=== PATIENT | female | born 1975 | race Caucasian/White ===

== ENCOUNTER → 2017-08-26 | Outpatient (CLI) | payer OTHER ==
--- NOTE | 2017-08-27 07:38 | MM ---
Reason for exam: screening (asymptomatic). Baseline mammogram. History: Patient had first child at age 30. Took hormonal contraceptives for 5 years. Physical Findings: Nurse did not find any significant physical abnormalities on exam. MG Screening Mammo w CAD Bilateral CC and MLO view(s) were taken. The breast tissue is heterogeneously dense. This may lower the sensitivity of mammography. No suspicious abnormality in the left breast. There are two focal asymmetries of the upper outer quadrant of the right breast at middle depth measuring 8mm and 3mm. Additional views will be performed. These results were verbally communicated with the patient and result sheet given to the patient on 08/26/17. ASSESSMENT: Incomplete: need additional imaging evaluation, BI-RAD 0 RECOMMENDATION: Special view mammogram of the right breast. If lesion persists on supplemental views, image directed ultrasound is recommended. [facility] will attempt to contact patient to return for supplemental views and ultrasound if indicated.
--- NOTE | 2017-08-27 07:40 | MM ---
Reason for exam: additional evaluation requested from abnormal screening. History: Patient had first child at age 30. Took hormonal contraceptives for 5 years. Physical Findings: Breast exam preformed at baseline screening. MG Work Up Mamm w CAD RT Spot compression CC and spot compression MLO view(s) were taken of the right breast. There are scattered fibroglandular densities. No distinct lesion persists on additional views. These results were verbally communicated with the patient and result sheet given to the patient on 08/26/17. ASSESSMENT: Benign, BI-RAD 2 RECOMMENDATION: Return to routine screening mammogram schedule for both breasts.
== END | disposition home or self-care (01) ==
LOC: RADMAMWWP 13:32
PROVIDERS: ATTEND Family Medicine
DX: Z12.31 Encounter for screening mammogram for malignant neoplasm of breast (principal); R92.8 Other abnormal and inconclusive findings on diagnostic imaging of breast
CPT/HCPCS: 77065; 77067

== ENCOUNTER → 2018-12-31 | Outpatient (CLI) | payer OTHER ==
--- NOTE | 2018-12-31 10:35 | MR ---
EXAMINATION TYPE: MR knee RT wo con DATE OF EXAM: 12/31/2018 COMPARISON: X-ray dated 08/11/2018 HISTORY: Pain in right knee TECHNIQUE: Multiplanar, multisequence imaging of the right knee is performed without IV contrast. FINDINGS: There is significant loss of joint space with most marked findings involving the knee joint. Grade II I chondromalacia of the lateral femoral cartilage is seen and there is grade II chondromalacia of the medial femoral cartilage. Grade II chondromalacia of the lateral patellar facet noted. Patellar retinaculum are intact. The patellar and quadriceps tendons are intact. Anterior cruciate and posterior cruciate ligaments are intact. Medial and lateral collateral ligament s have a normal appearance. There is grade 3 abnormal signal involving the posterior horn of the lateral meniscus compatible with meniscal tear. Intrasubstance signal involving the anterior horn is more typical of myxoid degenerat ion although a tear is not excluded. Medial meniscus demonstrates no diagnostic evidence of tear. No sizable popliteal fossa cyst. There is a small amount of edema seen in the suprapatellar bursa which can be seen with fat pad impin gement syndrome. IMPRESSION: 1. Osteoarthritis with significant chondromalacia particularly involving the lateral femoral cartilag e correlate clinically. 2. Posterior horn lateral meniscal tear. Significant mucoid degeneration of the anterior horn also moralez spected. 3. Correlate for fat pad impingement syndrome.
== END | disposition home or self-care (01) ==
LOC: RADMRIMAIN 08:57
PROVIDERS: ATTEND Orthopaedic Surgery
DX: M17.11 Unilateral primary osteoarthritis, right knee (principal); S83.281A Other tear of lateral meniscus, current injury, right knee, initial encounter; M94.261 Chondromalacia, right knee

== ENCOUNTER → 2019-02-18 | Outpatient (CLI) | payer OTHER ==
[2019-02-18 15:11] LABS: Basophils # (A) 0.1 k/uL (0-0.2); Basophils % (A) 1 %; Eosinophils # (A) 0.4 k/uL (0-0.7); Eosinophils % (A) 4 %; HCT 38.7 % (34.0-46.0); HGB 12.1 gm/dL (11.4-16.0); Lymphocytes # (A) 2.2 k/uL (1.0-4.8); Lymphocytes % (A) 23 %; MCH 30.1 pg (25.0-35.0); MCHC 31.2 g/dL (31.0-37.0); MCV 96.5 fL (80.0-100.0); Mean Platelet Volume 7.1; Monocytes # (A) 0.6 k/uL (0-1.0); Monocytes % (A) 6 %; Neutrophils # (A) 6.2 k/uL (1.3-7.7); Neutrophils % (A) 65 %; Platelet Count 354 k/uL (150-450); RBC 4.01 m/uL (3.80-5.40); RDW 15.2 % (11.5-15.5); WBC 9.5 k/uL (3.8-10.6)
== END | disposition home or self-care (01) ==
LOC: LABPAT 14:29 → LABWHC1 14:29
PROVIDERS: ATTEND Orthopaedic Surgery
DX: Z01.812 Encounter for preprocedural laboratory examination (principal); M23.91 Unspecified internal derangement of right knee
CPT/HCPCS: 36415; 80051; 85025

== ENCOUNTER 2019-02-25 07:18 | Day surgery (SDC) | payer OTHER ==
[2019-02-24 09:03] VITALS: BMI 35.5
--- NOTE | 2019-02-24 15:36 | HP ---
HISTORY AND PHYSICAL DATE OF SURGERY: 02/25/2019 Carol Shea is a 43-year-old patient seen with progressive right knee pain. Treatment options were discussed. She elected to proceed with right knee arthroscopy. Consent was obtained. PAST MEDICAL HISTORY: Noncontributory. PAST SURGICAL HISTORY: Noncontributory. DAILY MEDICATIONS: None. ALLERGIES: None reported. SOCIAL HISTORY: She denies current tobacco use. PHYSICAL EVALUATION OF THE RIGHT KNEE: Range of motion is 0 to 130 degrees. Tenderness along the medial and lateral joint lines. Positive medial Jyoti's. Positive lateral Jyoti's. Ligaments stable. Hip rotation is limited without pain. Distal neurovascular exam is intact. RADIOGRAPHS OF THE RIGHT KNEE: Revealed mild osteoarthritis. MRI right knee revealed lateral and meniscal tear. IMPRESSION: Internal derangement, right knee lateral meniscal tear. PLAN: Right knee arthroscopy with partial meniscectomy and debridement. MMODL / IJN: [id number] /
[~2019-02-25 07:18] MED LIST: DEXAMETHASONE SOD PHOSPHATE 10 MG/ML 1 ML VIAL IV ONE; LACTATED RINGERS 1,000 ML IV SCH; LIDOCAINE 1% 20 ML VIAL (10MG/ML) FOR IV START INTRADERMA PRN; MIDAZOLAM 2 MG/2 ML VIAL IV PRN; ONDANSETRON 4 MG/2 ML VIAL IVP ONE; SCOPOLAMINE 1.5MG/72HR PATCH TRANSDERM ONE
[2019-02-25] MEDS ORDERED: fentaNYL (PF) 50 MCG/ML 2 ML AMP ONE (08:38)
[2019-02-25] MEDS ORDERED: KETOROLAC 30 MG/ML 1 ML VIAL ONE (08:38)
[2019-02-25] MEDS ORDERED: GLYCOPYRROLATE 0.2 MG/ML 2 ML VIAL ONE (08:38)
[2019-02-25] MEDS ORDERED: PROPOFOL 10 MG/ML 20 ML VIAL IV ONE (08:38)
[2019-02-25] MEDS ORDERED: MIDAZOLAM 2 MG/2 ML VIAL ONE (08:38)
[2019-02-25] MEDS ORDERED: LIDOCAINE 1% INJ 10MG/ML (20 ML MDV) ONE (08:38)
[2019-02-25] MEDS ORDERED: BUPIVACAINE (PF) 0.5% 30 ML VIAL INTRAARTIC ONE (08:59)
[2019-02-25 09:27] VITALS: RESP 16; TEMP 97.4
--- NOTE | 2019-02-25 09:45 | P.OP ---
Date of Procedure: 02/25/19 Preoperative Diagnosis: Internal derangement right knee Postoperative Diagnosis: 1. Tear lateral meniscus right knee 2. Grade 2/3 chondromalacia patella right knee 3. Grade 3 chondromalacia lateral femoral condyle right knee 4. Reactive synovitis medial, lateral and suprapatellar compartments right knee Procedure(s) Performed: 1. Arthroscopic partial lateral meniscectomy right knee 2. Arthroscopic chondroplasty patella right knee 3. Arthroscopic chondroplasty lateral femoral condyle right knee 4. Arthroscopic partial synovectomy medial, lateral and suprapatellar compartments right knee Anesthesia: LAISHAA, local Surgeon: Yoni Dumont Estimated Blood Loss (ml): 8 Pathology: none sent Condition: stable Disposition: PACU Indications for Procedure: 43-year-old patient seen with progressive right knee pain. After having treatment options discussed, she elected to proceed with arthroscopy. Operative Findings: See description of procedure Description of Procedure: Patient was taken to the operative suite. Patient underwent a general anesthetic by the department of anesthesia. Patient was given preoperative antibiotics. The right lower extremity was placed in a well-padded arthroscopic leg garcia. The right leg was prepped and draped in the normal sterile orthopedic fashion. A lateral parapatellar and suprapatellar incision was made. Trochars were inserted. Arthroscopy was initiated. Suprapatellar pouch revealed diffuse thick reactive synovitis. The patellofemoral joint appeared to articulate congruently. There was grade 2/3 chondromalacia of the patella with some osteochondral tears present. The scope was guided into the medial gutter. No loose bodies or plica were identified. The scope was then guided into the medial compartment. A medial parapatellar incision was made. Trocar inserted followed by probe. The medial meniscus was probed and found to be stable. There was an area of grade 1/2 chondromalacia medial femoral condyle weightbearing surface with no osteochondral tears present. There was thick reactive synovitis anteriorly. I performed a partial synovectomy decompressing the thick reactive synovitis. The shaver was removed. There appeared be good decompression of the synovitis. Scope and probe were then guided into the intercondylar notch. Cruciates were identified, probed and found to be stable. The scope and probe were then guided into lateral compartment. There was a complex tear involving the posterior horn and midbody lateral meniscus. There were grade 3 chondral malacia changes lateral femoral condyle weightbearing surface with osteochondral flap tears present. There was thick reactive synovitis anteriorly. I performed a partial lateral meniscectomy getting down to stable meniscal tissue. I performed a chondroplasty of the lateral femoral condyle getting down to stable osteochondral tissue. I performed a partial synovectomy decompressing the thick reactive synovitis. The shaver was removed. There was good decompression of synovitis. The residual meniscus was stable. The residual osteochondral surface medial femoral condyle was stable. The scope was in guided back into the suprapatellar compartment. I introduced a motorized shaver into the suprapatellar compartment. I debrided some piecemeal fragments of meniscus I encountered. I performed a chondroplasty of the patella gained down to stable tissue. I performed a partial synovectomy decompressing the thick reactive synovitis. The shaver was removed. There was good decompression of synovitis. The residual osteochondral surface of patella appeared stable. I took one more look on the entire knee, no residual debris. Instruments were now removed from the joint. The joint was infiltrated with .25% Marcaine. Steri- Strips were applied to the portal sites. Sterile dressings were applied. The patient was placed into a JUAN CARLOS hose. No tourniquet was utilized. The patient was awakened, transferred to a bed and taken to recovery stable satisfactory con dition.
[2019-02-25] MEDS: HYDROmorphone 0.5 MG/0.5 ML SYRINGE IVP PRN ×2 (09:46→09:54)
[2019-02-25 10:35] VITALS: BP 120/64; PULSE 50
== END 2019-02-25 11:05 | disposition home or self-care (01) ==
LOC: OR 07:18
PROVIDERS: ATTEND Orthopaedic Surgery
DX: M23.351 Other meniscus derangements, posterior horn of lateral meniscus, right knee (principal); M23.361 Other meniscus derangements, other lateral meniscus, right knee; M94.261 Chondromalacia, right knee; M65.861 Other synovitis and tenosynovitis, right lower leg
CPT/HCPCS: 29881; 81025; J2250; J1100; J0690; J2405; J2001; J3010; J1885; J2704; J1170

== ENCOUNTER 2019-09-16 17:47 | Emergency (ER) | payer OTHER ==
[2019-09-16 18:09] VITALS: RESP 18
[2019-09-16] MEDS ORDERED: SODIUM CHLORIDE 0.9% 1,000 ML IV STA (18:19)
[2019-09-16] MEDS ORDERED: IOPAMIDOL CONTRAST (ORAL USE) VIAL PO PRN (18:19)
--- NOTE | 2019-09-16 18:26 | ED ---
General Adult HPI - General Chief complaint: Abdominal Pain Stated complaint: ABD PAIN Time Seen by Provider: 09/16/19 18:11 Source: patient, RN notes reviewed, old records reviewed Mode of arrival: ambulatory Limitations: no limitations - History of Present Illness Initial comments: 44 year old female patient presents with history significant for reactive surgery Ford-en-Y procedure in 2013, history of pulmonary embolism reportedly from oral contraceptives presents to ED for chief complaint of 2 days of abdominal pain cough, fever. Patient reports that for the last 48 hours she has been experiencing a dry cough, one episode of emesis 2 days ago, nausea, mild diarrhea, right lower quadrant, periumbilical abdominal pain. Patient does report that she is also status post appendectomy and cholecystectomy. Patient reports that the abdominal pain is her chief complaint of brought her in today. Does report that she had a fever 2 days ago, denies one today, denies any chance of being at this time. Systemic: Pt denies fatigue, fever/chills, rash. Pt denies weakness, night sweats, weight loss. Neuro: Pt denies headache, visual disturbances, syncope or pre-syncope. HEENT: Pt denies ocular discharge or irritation, otalgia, rhinorrhea, pharyngitis or notable lymphadenopathy. Cardiopulmonary: Pt denies chest pain, SOB, heart palpitations, dyspnea on exertion. : Pt denies dysuria, burning w/ urination, frequency/urgency. Denies new onset urinary or bowel incontinence. MSK: Pt denies myalgia, loss of strength or function in extremities. Neuro: Pt denies new onset weakness, paresthesias. - Related Data Home Medications Medication Instructions Recorded Confirmed Albuterol Inhaler [Ventolin Hfa 1 - 2 puff INHALATION RT-Q6H PRN 02/24/19 02/25/19 Inhaler] Cholecalciferol [Vitamin D3 (25 1,000 unit PO DAILY 02/24/19 02/25/19 Mcg = 1000 Iu)] Thiamine [Vitamin B-1] 100 mg PO DAILY 02/24/19 02/25/19 Turmeric Root Extract [Turmeric] 500 mg PO DAILY 02/24/19 02/25/19 Cannabidiol (Cbd) Extract 1 drop PO DAILY PRN 02/25/19 02/25/19 [Epidiolex] Previous Rx's Medication Instructions Recorded Hydrocodone/Acetaminophen [Strong 1 each PO Q6HR PRN #15 tab 02/25/19 5-325] Cephalexin [Keflex] 500 mg PO Q12HR 7 Days #14 cap 09/16/19 Allergies Allergy/AdvReac Type Severity Reaction Status Date / Time DERMABOND Allergy Rash/Hives Uncoded 09/16/19 18:08 Review of Systems ROS Statement: Those systems with pertinent positive or pertinent negative responses have been documented in the HPI. ROS Other: All systems not noted in ROS Statement are negative. 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, allergy induced asthma History of Any Multi-Drug Resistant Organisms: None Reported Past Surgical History: Adenoidectomy, Appendectomy, Bariatric Surgery, Cholecystectomy, Orthopedic Surgery, Tonsillectomy Additional Past Surgical History / Comment(s): Ford en Y Gastric Bypass, laparoscopy-exploratory, Left Knee arthroscopy Past Anesthesia/Blood Transfusion Reactions: No Reported Reaction Past Psychological History: Depression Smoking Status: Former smoker Past Alcohol Use History: Daily, Occasional Past Drug Use History: None Reported - Past Family History Mother Family Medical History: No Reported History Father Family Medical History: No Reported History General Exam - General Exam Comments Initial Comments: Constitutional: NAD, AOX3, Pt has pleasant affect. HEENT: NC/AT, trachea midline, neck supple, no lymphadenopathy. Posterior pharynx non erythematous, without exudates. External ears appear normal, without discharge. Mucous membranes moist. Eyes PERRLA, EOM intact. There is no scleral icterus. No pallor noted. Cardiopulmonary: RRR, no murmurs, rubs or gallops, no JVD noted. Lungs CTAB in anterior and posterior hartman. No peripheral edema. Abdominal exam: Abdomen soft and non-distended. Mild tenderness to palpation periumbilical, right lower quadrant region.. Bowel sounds active in LLQ. No hepatosplenomegaly. No ecchymosis Neuro: CN II-XII grossly intact. No nuchal rigidity. No raccon eyes, no ventura sign, no hemotympanum. No cervical spinal tenderness. MSK: No posterior calf tenderness bilaterally, homans sign negative bilaterally. Posterior tibialis and radial pulse +2 bilaterally. Sensation intact in upper and lower extremities. Full active ROM in upper and lower extremities, 5/5 stregnth. Limitations: no limitations Course Vital Signs 09/16/19 18:02 Temperature 99 F Pulse Rate 70 Respiratory 18 Rate Blood Pressure 139/83 O2 Sat by Pulse 97 Oximetry Medical Decision Making - Medical Decision Making 44 year old female patient presents with history significant for reactive surgery Ford-en-Y procedure in 2013, history of pulmonary embolism reportedly from oral contraceptives presents to ED for chief complaint of 2 days of abdominal pain cough, fever. Patient reports that for the last 48 hours she has been experiencing a dry cough, one episode of emesis 2 days ago, nausea, mild diarrhea, right lower quadrant, periumbilical abdominal pain. Patient does report that she is also status post appendectomy and cholecystectomy. Patient reports that the abdominal pain is her chief complaint of brought her in today. Does report that she had a fever 2 days ago, denies one today, denies any chance of being at this time. Patient vital signs stable, afebrile. Physical exam displayed mild amount of periumbilical, right lower quadrant tenderness. Laboratory investigations are obtained and are overall non- impressive. Influenza negative. UA displayed borderline urinary tract infection. This will be treated with Keflex. Chest x-ray displayed no acute process. CT abdomen and pelvis displayed no acute process, sinusitis and rhinitis. Patient will be discharged for follow-up with primary care provider will take antibiotics as directed and will return to ER if condition worsens. Case discussed with Dr. Hess. - Lab Data Result diagrams: 09/16/19 18:30 09/16/19 18:30 Lab Results 09/16/19 09/16/19 09/16/19 Range/Units 18:30 18:30 18:30 WBC 6.8 (3.8-10.6) k/uL RBC 4.44 (3.80-5.40) m/uL Hgb 12.9 (11.4-16.0) gm/dL Hct 40.6 (34.0-46.0) % MCV 91.5 (80.0-100.0) fL MCH 29.0 (25.0-35.0) pg MCHC 31.7 (31.0-37.0) g/dL RDW 13.9 (11.5-15.5) % Plt Count 444 (150-450) k/uL Neutrophils % 60 % Lymphocytes % 22 % Monocytes % 8 % Eosinophils % 5 % Basophils % 1 % Neutrophils # 4.1 (1.3-7.7) k/uL Lymphocytes # 1.5 (1.0-4.8) k/uL Monocytes # 0.6 (0-1.0) k/uL Eosinophils # 0.4 (0-0.7) k/uL Basophils # 0.1 (0-0.2) k/uL Sodium 137 (137-145) mmol/L Potassium 4.7 (3.5-5.1) mmol/L Chloride 107 (98-107) mmol/L Carbon Dioxide 21 L (22-30) mmol/L Anion Gap 9 mmol/L BUN 14 (7-17) mg/dL Creatinine 0.65 (0.52-1.04) mg/dL Est GFR (CKD-EPI)AfAm >90 (>60 ml/min/1.73 sqM) Est GFR (CKD-EPI)NonAf >90 (>60 ml/min/1.73 sqM) Glucose 98 (74-99) mg/dL Plasma Lactic Acid Riley 0.8 (0.7-2.0) mmol/L Calcium 9.3 (8.4-10.2) mg/dL Total Bilirubin 0.5 (0.2-1.3) mg/dL AST 25 (14-36) U/L ALT 13 (4-34) U/L Alkaline Phosphatase 70 (38-126) U/L Total Protein 7.2 (6.3-8.2) g/dL Albumin 4.0 (3.5-5.0) g/dL Lipase 153 (23-300) U/L Urine Color Urine Appearance (Clear) Urine pH (5.0-8.0) Ur Specific Weston (1.001-1.035) Urine Protein (Negative) Urine Glucose (UA) (Negative) Urine Ketones (Negative) Urine Blood (Negative) Urine Nitrite (Negative) Urine Bilirubin (Negative) Urine Urobilinogen (<2.0) mg/dL Ur Leukocyte Esterase (Negative) Urine RBC (0-5) /hpf Urine WBC (0-5) /hpf Ur Squamous Epith Cells (0-4) /hpf Urine Bacteria (None) /hpf Urine Mucus (None) /hpf Urine Yeast (Budding) (None) /hpf Urine HCG, Qual (Not Detectd) Influenza Type A RNA (Not Detectd) Influenza Type B (PCR) (Not Detectd) 09/16/19 09/16/19 09/16/19 Range/Units 18:30 19:34 19:34 WBC (3.8-10.6) k/uL RBC (3.80-5.40) m/uL Hgb (11.4-16.0) gm/dL Hct (34.0-46.0) % MCV (80.0-100.0) fL MCH (25.0-35.0) pg MCHC (31.0-37.0) g/dL RDW (11.5-15.5) % Plt Count (150-450) k/uL Neutrophils % % Lymphocytes % % Monocytes % % Eosinophils % % Basophils % % Neutrophils # (1.3-7.7) k/uL Lymphocytes # (1.0-4.8) k/uL Monocytes # (0-1.0) k/uL Eosinophils # (0-0.7) k/uL Basophils # (0-0.2) k/uL Sodium (137-145) mmol/L Potassium (3.5-5.1) mmol/L Chloride (98-107) mmol/L Carbon Dioxide (22-30) mmol/L Anion Gap mmol/L BUN (7-17) mg/dL Creatinine (0.52-1.04) mg/dL Est GFR (CKD-EPI)AfAm (>60 ml/min/1.73 sqM) Est GFR (CKD-EPI)NonAf (>60 ml/min/1.73 sqM) Glucose (74-99) mg/dL Plasma Lactic Acid Riley (0.7-2.0) mmol/L Calcium (8.4-10.2) mg/dL Total Bilirubin (0.2-1.3) mg/dL AST (14-36) U/L ALT (4-34) U/L Alkaline Phosphatase (38-126) U/L Total Protein (6.3-8.2) g/dL Albumin (3.5-5.0) g/dL Lipase (23-300) U/L Urine Color Light Yellow Urine Appearance Cloudy H (Clear) Urine pH 6.5 (5.0-8.0) Ur Specific Weston >1.050 H (1.001-1.035) Urine Protein Trace H (Negative) Urine Glucose (UA) Negative (Negative) Urine Ketones Negative (Negative) Urine Blood Trace H (Negative) Urine Nitrite Negative (Negative) Urine Bilirubin Negative (Negative) Urine Urobilinogen <2.0 (<2.0) mg/dL Ur Leukocyte Esterase Large H (Negative) Urine RBC 16 H (0-5) /hpf Urine WBC 34 H (0-5) /hpf Ur Squamous Epith Cells 24 H (0-4) /hpf Urine Bacteria Occasional H (None) /hpf Urine Mucus Rare H (None) /hpf Urine Yeast (Budding) Occasional H (None) /hpf Urine HCG, Qual Not Detected (Not Detectd) Influenza Type A RNA Not Detected (Not Detectd) Influenza Type B (PCR) Not Detected (Not Detectd) Disposition Clinical Impression: UTI (urinary tract infection), Abdominal pain Disposition: HOME SELF-CARE Condition: Stable Instructions (If sedation given, give patient instructions): Abdominal Pain (ED), Urinary Tract Infection in Women (ED) Additional Instructions: Follow-up with primary care provider tomorrow. Take antibiotics as directed. Return to ER if condition worsens in any way. Prescriptions: Cephalexin [Keflex] 500 mg PO Q12HR 7 Days #14 cap Is patient prescribed a controlled substance at d/c from ED?: No Referrals: Jered Corcoran DO [Primary Care Provider] - 1-2 days
[2019-09-16 18:42] LABS: Basophils # (A) 0.1 k/uL (0-0.2); Basophils % (A) 1 %; Eosinophils # (A) 0.4 k/uL (0-0.7); Eosinophils % (A) 5 %; HCT 40.6 % (34.0-46.0); HGB 12.9 gm/dL (11.4-16.0); Lymphocytes # (A) 1.5 k/uL (1.0-4.8); Lymphocytes % (A) 22 %; MCHC 31.7 g/dL (31.0-37.0); MCV 91.5 fL (80.0-100.0); Mean Platelet Volume 7.3; Monocytes # (A) 0.6 k/uL (0-1.0); Monocytes % (A) 8 %; Neutrophils # (A) 4.1 k/uL (1.3-7.7); Neutrophils % (A) 60 %; Platelet Count 444 k/uL (150-450); RBC 4.44 m/uL (3.80-5.40); RDW 13.9 % (11.5-15.5); WBC 6.8 k/uL (3.8-10.6)
[2019-09-16 18:57] LABS: ALT 13 U/L (4-34); AST 25 U/L (14-36); African American GFR (CKD) >90 (>60 ml/min/1.73 sqM); Alkaline Phosphatase 70 U/L (38-126); Anion Gap 9 mmol/L; Blood Urea Nitrogen 14 mg/dL (7-17); Calcium 9.3 mg/dL (8.4-10.2); Carbon Dioxide 21 mmol/L (22-30); Chloride 107 mmol/L (98-107); Glucose 98 mg/dL (74-99); Non-African American GFR(CKD) >90 (>60 ml/min/1.73 sqM); Potassium 4.7 mmol/L (3.5-5.1); Sodium 137 mmol/L (137-145); Total Bilirubin 0.5 mg/dL (0.2-1.3); Total Protein 7.2 g/dL (6.3-8.2)
--- NOTE | 2019-09-16 19:39 | XR ---
EXAMINATION: XR chest 2V DATE AND TIME: 09/16/2019 6:46 PM CLINICAL INDICATION: PHH; abdominal pain, nausea TECHNIQUE: Departmental protocol COMPARISON: 08/30/2013 FINDINGS: The lungs are clear. The pleural spaces are negative. The cardiac silhouette is not enlarged. The remainder of the mediastinal silhouette is unremarkable. The skeletal structures and soft tissues are negative for acute findings. IMPRESSION: NO ACUTE PROCESS.
[2019-09-16 19:53] LABS: Appearance,Urine Cloudy (Clear); Bacteria,Urine Occasional /hpf; Bilirubin,Urine Negative (Negative); Blood,Urine Trace (Negative); Budding Yeast,Urine Occasional /hpf; Color,Urine Light Yellow; Glucose,Urine (UA) Negative (Negative); Ketones,Urine Negative (Negative); Leukocyte Esterase,Urine Large (Negative); Mucus,Urine Rare /hpf; Nitrite,Urine Negative (Negative); PH, Urine 6.5 (5.0-8.0); Protein,Urine Trace (Negative); RBC,Urine 16 /hpf (0-5); Squamous Epithelial Cell,Urine 24 /hpf (0-4); Urobilinogen,Urine <2.0 mg/dL (<2.0); WBC,Urine 34 /hpf (0-5)
[2019-09-16 19:55] LABS: Specific Gravity,Urine >1.050 (1.001-1.035)
--- NOTE | 2019-09-16 19:55 | CT ---
EXAMINATION TYPE: CT abdomen pelvis w con DATE OF EXAM: 09/16/2019 COMPARISON: 09/09/2013 HISTORY: Abdominal pain. Hx gastric bypass, situs invertus. Bariatric prep given. CT DLP: 1854.1 mGycm. Automated exposure control for dose reduction was used. TECHNIQUE: Helical acquisition of images was performed from the lung bases through the pelvis. CONTRAST: Performed with Oral Contrast and with IV Contrast, patient injected with 100 mL of Isovue 3 00. FINDINGS: LUNG BASES: No significant abnormality is appreciated. LIVER/GB: No significant abnormality is appreciated. PANCREAS: No significant abnormality is seen. SPLEEN: No significant abnormality is seen. ADRENALS: No significant abnormality is seen. KIDNEYS: No significant abnormality is seen. FREE AIR: No free air is visualized. RETROPERITONEAL ADENOPATHY: Scattered subcentimeter short axis lymph nodes noted, but no nohemi adeno sasha. REPRODUCTIVE ORGANS: No significant abnormality is seen URINARY BLADDER: No significant abnormality is seen. PELVIC ADENOPATHY: Scattered subcentimeter short axis lymph nodes noted, but no nohemi adenopathy. OSSEOUS STRUCTURES: No significant abnormality is seen. BOWEL: No significant abnormality is seen. OTHER: No acute vascular findings. IMPRESSION: 1. NO ACUTE PROCESS. 2. SITUS INVERTUS.
[2019-09-16] MEDS ORDERED: cefTRIAXone IN SWFI 1,000 MG/10 ML SYRINGE IVP STA (20:21)
[2019-09-16 20:51] VITALS: BP 145/75; PULSE 69; TEMP 99.1
[2019-09-16] MEDS ORDERED: CEPHALEXIN 500MG STARTER PACK 4 CAP BTL PO STA (20:56)
== END 2019-09-16 20:58 | disposition home or self-care (01) ==
LOC: EC 17:47
DX: N39.0 Urinary tract infection, site not specified (principal); R05 Cough; R50.9 Fever, unspecified; R11.0 Nausea; R19.7 Diarrhea, unspecified; J45.998 Other asthma; Z87.891 Personal history of nicotine dependence; Z91.048 Other nonmedicinal substance allergy status; Z79.899 Other long term (current) drug therapy; Z86.711 Personal history of pulmonary embolism; Z90.49 Acquired absence of other specified parts of digestive tract; Z98.84 Bariatric surgery status; Z90.89 Acquired absence of other organs
CPT/HCPCS: 36415; 80053; 83605; 83690; 85025; 81001; 81025; 87086; 87502; 71046; 74177; 99285; 96374; 96361 ×2; J0696; Q9967

== ENCOUNTER 2021-06-11 20:54 | Emergency (ER) | payer OTHER ==
[2021-06-11 21:21] VITALS: BP 148/94; PULSE 59; RESP 18; TEMP 98.7
--- NOTE | 2021-06-11 21:38 | ED ---
Arrhythmia/Palpitations HPI - General Chief Complaint: Arrhythmia/Palpitations Stated Complaint: Chest Pain Source: patient Mode of arrival: ambulatory Limitations: no limitations - Related Data Home Medications Medication Instructions Recorded Confirmed Albuterol Inhaler (Mhu) [Ventolin 1 - 2 puff INHALATION RT-Q6H PRN 02/24/19 02/25/19 Hfa Inhaler] Cholecalciferol [Vitamin D3 (25 1,000 unit PO DAILY 02/24/19 02/25/19 Mcg = 1000 Iu)] Thiamine [Vitamin B-1] 100 mg PO DAILY 02/24/19 02/25/19 Turmeric Root Extract [Turmeric] 500 mg PO DAILY 02/24/19 02/25/19 Cannabidiol (Cbd) [Epidiolex] 1 drop PO DAILY PRN 02/25/19 02/25/19 Previous Rx's Medication Instructions Recorded Hydrocodone/Acetaminophen [[place] 1 each PO Q6HR PRN #15 tab 02/25/19 5-325] Cephalexin [Keflex] 500 mg PO Q12HR 7 Days #14 cap 09/16/19 Allergies Allergy/AdvReac Type Severity Reaction Status Date / Time DERMABOND Allergy Rash/Hives Uncoded 06/11/21 21:21 Review of Systems ROS Statement: Those systems with pertinent positive or pertinent negative responses have been documented in the HPI. ROS Other: All systems not noted in ROS Statement are negative. 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, allergy induced asthma History of Any Multi-Drug Resistant Organisms: None Reported Past Surgical History: Adenoidectomy, Appendectomy, Bariatric Surgery, Cholecystectomy, Orthopedic Surgery, Tonsillectomy Additional Past Surgical History / Comment(s): Ford en Y Gastric Bypass, laparoscopy-exploratory, Left Knee arthroscopy Past Anesthesia/Blood Transfusion Reactions: No Reported Reaction Past Psychological History: Depression Smoking Status: Never smoker Past Alcohol Use History: Daily, Occasional Past Drug Use History: Marijuana - Past Family History Mother Family Medical History: No Reported History Father Family Medical History: No Reported History General Exam Limitations: no limitations Course Vital Signs 06/11/21 21:15 Temperature 98.7 F Pulse Rate 59 L Respiratory 18 Rate Blood Pressure 148/94 O2 Sat by Pulse 95 Oximetry EKG Findings - EKG Results: EKG: interpreted by ERMD, sinus rhythm, normal ST/T EKG shows: bradycardia (Rate 54 bpm) - Blocks, Lane, Hypertrophy, ST Abn: QRS axis and voltage: low voltage (<0.5 MV total QRS and <1.0 MV in each precordial lead) Medical Decision Making - Medical Decision Making The patient had registered for palpitations. I did order some labs based on the triage complaint, but had not seen the patient's who appears has left without being seen. - Lab Data Result diagrams: 06/11/21 21:34 06/11/21 21:34 Lab Results 06/11/21 06/11/21 06/11/21 Range/Units 21:34 21:34 21:34 WBC 10.2 (3.8-10.6) k/uL RBC 4.17 (3.80-5.40) m/uL Hgb 11.8 (11.4-16.0) gm/dL Hct 36.9 (34.0-46.0) % MCV 88.5 (80.0-100.0) fL MCH 28.2 (25.0-35.0) pg MCHC 31.9 (31.0-37.0) g/dL RDW 14.3 (11.5-15.5) % Plt Count 483 H (150-450) k/uL MPV 7.4 Neutrophils % 60 % Lymphocytes % 30 % Monocytes % 6 % Eosinophils % 2 % Basophils % 1 % Neutrophils # 6.1 (1.3-7.7) k/uL Lymphocytes # 3.1 (1.0-4.8) k/uL Monocytes # 0.6 (0-1.0) k/uL Eosinophils # 0.2 (0-0.7) k/uL Basophils # 0.1 (0-0.2) k/uL PT 9.8 (9.0-12.0) sec INR 0.9 (<1.2) APTT 20.9 L (22.0-30.0) sec D-Dimer 1.60 H (<0.60) mg/L FEU Sodium 136 L (137-145) mmol/L Potassium 4.3 (3.5-5.1) mmol/L Chloride 107 (98-107) mmol/L Carbon Dioxide 21 L (22-30) mmol/L Anion Gap 8 mmol/L BUN 12 (7-17) mg/dL Creatinine 0.61 (0.52-1.04) mg/dL Est GFR (CKD-EPI)AfAm >90 (>60 ml/min/1.73 sqM) Est GFR (CKD-EPI)NonAf >90 (>60 ml/min/1.73 sqM) Glucose 91 (74-99) mg/dL Calcium 9.2 (8.4-10.2) mg/dL Magnesium 2.1 (1.6-2.3) mg/dL Total Bilirubin 0.7 (0.2-1.3) mg/dL AST 35 (14-36) U/L ALT 25 (4-34) U/L Alkaline Phosphatase 88 (38-126) U/L Troponin I (0.000-0.034) ng/mL Total Protein 7.0 (6.3-8.2) g/dL Albumin 3.7 (3.5-5.0) g/dL 06/11/21 Range/Units 21:34 WBC (3.8-10.6) k/uL RBC (3.80-5.40) m/uL Hgb (11.4-16.0) gm/dL Hct (34.0-46.0) % MCV (80.0-100.0) fL MCH (25.0-35.0) pg MCHC (31.0-37.0) g/dL RDW (11.5-15.5) % Plt Count (150-450) k/uL MPV Neutrophils % % Lymphocytes % % Monocytes % % Eosinophils % % Basophils % % Neutrophils # (1.3-7.7) k/uL Lymphocytes # (1.0-4.8) k/uL Monocytes # (0-1.0) k/uL Eosinophils # (0-0.7) k/uL Basophils # (0-0.2) k/uL PT (9.0-12.0) sec INR (<1.2) APTT (22.0-30.0) sec D-Dimer (<0.60) mg/L FEU Sodium (137-145) mmol/L Potassium (3.5-5.1) mmol/L Chloride (98-107) mmol/L Carbon Dioxide (22-30) mmol/L Anion Gap mmol/L BUN (7-17) mg/dL Creatinine (0.52-1.04) mg/dL Est GFR (CKD-EPI)AfAm (>60 ml/min/1.73 sqM) Est GFR (CKD-EPI)NonAf (>60 ml/min/1.73 sqM) Glucose (74-99) mg/dL Calcium (8.4-10.2) mg/dL Magnesium (1.6-2.3) mg/dL Total Bilirubin (0.2-1.3) mg/dL AST (14-36) U/L ALT (4-34) U/L Alkaline Phosphatase (38-126) U/L Troponin I <0.012 (0.000-0.034) ng/mL Total Protein (6.3-8.2) g/dL Albumin (3.5-5.0) g/dL Disposition Clinical Impression: Patient left without being seen Disposition: Left W/O Being Seen by Phys Condition: Undetermined Is patient prescribed a controlled substance at d/c from ED?: No Referrals: Jered Corcoran DO [Primary Care Provider] - 1-2 days
--- NOTE | 2021-06-11 21:47 | XR ---
EXAMINATION TYPE: XR chest 2V DATE OF EXAM: 06/11/2021 COMPARISON: NONE HISTORY: Abdominal pain TECHNIQUE: 2 views FINDINGS: Heart is normal. Lungs are clear of consolidation. There are no hilar masses. Costophrenic angles are clear. Bony thorax is intact. There are small reticular densities in the mid lung hartman. IMPRESSION: Small reticular densities in the mid lung hartman appear new compared to old exam. This co uld be some subsegmental atelectasis. Normal heart.
[2021-06-11 21:50] LABS: Basophils # (A) 0.1 k/uL (0-0.2); Basophils % (A) 1 %; Eosinophils # (A) 0.2 k/uL (0-0.7); Eosinophils % (A) 2 %; HCT 36.9 % (34.0-46.0); HGB 11.8 gm/dL (11.4-16.0); Lymphocytes # (A) 3.1 k/uL (1.0-4.8); Lymphocytes % (A) 30 %; MCH 28.2 pg (25.0-35.0); MCHC 31.9 g/dL (31.0-37.0); MCV 88.5 fL (80.0-100.0); Mean Platelet Volume 7.4; Monocytes # (A) 0.6 k/uL (0-1.0); Monocytes % (A) 6 %; Neutrophils # (A) 6.1 k/uL (1.3-7.7); Neutrophils % (A) 60 %; Platelet Count 483 k/uL (150-450); RBC 4.17 m/uL (3.80-5.40); RDW 14.3 % (11.5-15.5); WBC 10.2 k/uL (3.8-10.6)
[2021-06-11 22:11] LABS: INR 0.9 (<1.2); Prothrombin Time 9.8 sec (9.0-12.0)
[2021-06-11 22:14] LABS: ALT 25 U/L (4-34); AST 35 U/L (14-36); African American GFR (CKD) >90 (>60 ml/min/1.73 sqM); Albumin 3.7 g/dL (3.5-5.0); Alkaline Phosphatase 88 U/L (38-126); Anion Gap 8 mmol/L; Blood Urea Nitrogen 12 mg/dL (7-17); Calcium 9.2 mg/dL (8.4-10.2); Carbon Dioxide 21 mmol/L (22-30); Chloride 107 mmol/L (98-107); Glucose 91 mg/dL (74-99); Magnesium 2.1 mg/dL (1.6-2.3); Non-African American GFR(CKD) >90 (>60 ml/min/1.73 sqM); Potassium 4.3 mmol/L (3.5-5.1); Sodium 136 mmol/L (137-145); Total Bilirubin 0.7 mg/dL (0.2-1.3)
[2021-06-11 22:54] LABS: Partial Thromboplastin Time 20.9 sec (22.0-30.0)
== END 2021-06-11 22:11 | disposition left against medical advice (07) ==
LOC: EC 20:54
DX: Z53.21 Procedure and treatment not carried out due to patient leaving prior to being seen by health care provider (principal); R07.9 Chest pain, unspecified; J45.909 Unspecified asthma, uncomplicated; Z91.09 Other allergy status, other than to drugs and biological substances
CPT/HCPCS: 36415; 71046; 80053; 83735; 84484; 85025; 85379; 85610; 85730; 93005; 99499

== ENCOUNTER → 2021-06-11 | Outpatient (CLI) | payer OTHER ==
--- NOTE | 2021-06-11 21:54 | MR ---
EXAMINATION TYPE: MR knee LT wo con DATE OF EXAM: 06/11/2021 COMPARISON: Outside bilateral knee x-rays February 13, 2021 HISTORY: Left inner knee pain, pain behind knee, painful kneecap, locking and swelling for 30 years. Half meniscus removed 25 years ago. TECHNIQUE: Multiplanar, multisequence imaging of the left knee is performed without IV contrast. FINDINGS: MEDIAL MENISCUS: Anterior and posterior horns are intact without tear. LATERAL MENISCUS: Globular increased signal posterior horn. Adjacent para meniscal cyst formation ant erior to the anterior horn. Diminutive size to lateral meniscus, probable prior partial surgical rese ction CRUCIATE LIGAMENTS: The anterior and posterior cruciate ligaments are intact and unremarkable. COLLATERAL LIGAMENTS: The medial collateral ligament and lateral collateral ligament complex are inta ct and unremarkable. EXTENSOR MECHANISM: Visualized quadriceps and patellar tendons are intact. EFFUSION: Small size suprapatellar joint effusion. POPLITEAL CYST: No popliteal/haji cyst. TRICOMPARTMENT SPACES: Mild to moderate tricompartment joint space loss and spurring CARTILAGE: Minimal fissuring of articular cartilage posterior patellar pole. Some mild cartilaginous loss medial lateral tibiofemoral compartments BONE MARROW SIGNAL: No focal abnormal marrow signal is appreciated. OTHER: Multi septated cystic change posterior to the PCL consistent with synovial cyst formation. IMPRESSION: Suspect postsurgical change or partial meniscectomy lateral meniscus. Anterior paramenisc al cyst formation favors product of old injury. Mild to moderate tricompartment degenerative changes as detailed above.. Intrasubstance tear posterior horn medial meniscus. Other findings as noted above .
== END | disposition home or self-care (01) ==
LOC: RADMRIMAIN 19:53
PROVIDERS: ATTEND Orthopaedic Surgery
DX: M25.562 Pain in left knee (principal)

== ENCOUNTER → 2022-12-26 | Outpatient (CLI) | payer OTHER ==
--- NOTE | 2022-12-27 08:44 | MM ---
Reason for Exam: Screening (asymptomatic). Last mammogram was performed 5 year(s) and 5 month(s) ago. Patient History: Menarche at age 11. First Full-Term at age 30. Late child-bearing (after 30). Patient used Hormonal Contraceptives for 5 years. Risk Values: Earline 5 year model risk: 1.3%. NCI Lifetime model risk: 12.3%. Prior Study Comparison: 08/26/2017 Bilateral Screening Mammogram, [facility]. 08/26/2017 Right Diagnostic Mammogram, [facility]. Tissue Density: The breast tissue is heterogeneously dense. This may lower the sensitivity of mammography. Findings: Analyzed By CAD. Retroareolar nodular density approximately 2.2 cm from the nipple requires additional views. No suspicious calcifications are present. Overall Assessment: Incomplete: need additional imaging evaluation, BI-RAD 0 Management: Diagnostic Mammogram of the right breast. . Patient should continue monthly self-breast exams. A clinical breast exam by your physician is recommended on an annual basis. This exam should not preclude additional follow-up of suspicious palpable abnormalities. Note on Earline scores and lifetime risk: 1. A Earline score greater than 3% is considered moderate risk. If this is the case, consider specialist referral to assess eligibility for a risk reducing agent. 2. If overall lifetime risk for the development of breast cancer is 20% or higher, the patient may qualify for future screening with alternating mammogram and breast MRI. Electronically signed and approved by: Dustin Edwards M.D. Radiologis
== END | disposition home or self-care (01) ==
LOC: RADMAMWWP 10:31
PROVIDERS: ATTEND Obstetrics & Gynecology
DX: Z12.31 Encounter for screening mammogram for malignant neoplasm of breast (principal)
CPT/HCPCS: 77063; 77067

== ENCOUNTER → 2023-01-03 | Outpatient (CLI) | payer OTHER ==
--- NOTE | 2023-01-03 13:59 | MM ---
Reason for Exam: Additional evaluation requested from abnormal screening. Last screening mammogram was performed less than 1 month ago. Patient History: Menarche at age 11. First Full-Term at age 30. Late child-bearing (after 30). Patient has history of breast feeding. Patient used Hormonal Contraceptives for 5 years. Risk Values: Earline 5 year model risk: 1.3%. NCI Lifetime model risk: 12.3%. Prior Study Comparison: 08/26/2017 Bilateral Screening Mammogram, [facility]. 08/26/2017 Right Diagnostic Mammogram, [facility]. 12/26/2022 Bilateral MG 3D screening mammo w/cad, [facility]. Tissue Density: Right: The breast tissue is heterogeneously dense. This may lower the sensitivity of mammography. Findings: Analyzed By CAD. Area of concern in the right breast retroareolar region compresses out on spot compression imaging. No new suspicious masses, calcifications or distortions. Overall Assessment: Benign, BI-RAD 2 Management: Screening Mammogram of both breasts in 1 year. Results were given to the patient verbally at the time of exam. Patient should continue monthly self-breast exams. A clinical breast exam by your physician is recommended on an annual basis. This exam should not preclude additional follow-up of suspicious palpable abnormalities. Note on Earline scores and lifetime risk: 1. A Earline score greater than 3% is considered moderate risk. If this is the case, consider specialist referral to assess eligibility for a risk reducing agent. 2. If overall lifetime risk for the development of breast cancer is 20% or higher, the patient may qualify for future screening with alternating mammogram and breast MRI. Electronically signed and approved by: Brian Carreon DO
== END | disposition home or self-care (01) ==
LOC: RADMAMWWP 13:30
PROVIDERS: ATTEND Obstetrics & Gynecology
DX: R92.8 Other abnormal and inconclusive findings on diagnostic imaging of breast (principal)
CPT/HCPCS: 77065; G0279; 77061

== ENCOUNTER → 2024-02-12 | Outpatient (CLI) | payer OTHER ==
[2024-02-12 15:12] LABS: Basophils % (A) 1.1 %; Eosinophils # (A) 0.26 X 10*3/uL (0.04-0.35); Eosinophils % (A) 2.8 %; HCT 37.3 % (37.2-46.3); HGB 11.2 g/dL (12.0-15.0); Lymphocytes # (A) 2.64 X 10*3/uL (0.90-5.00); Lymphocytes % (A) 28.5 %; MCH 25.1 pg (27.0-32.0); MCV 83.4 FL (80.0-97.0); Mean Platelet Volume 10.6 FL (9.5-12.2); Monocytes # (A) 0.69 X 10*3/uL (0.20-1.00); Monocytes % (A) 7.5 %; NRBC Per 100 WBC 0 X 10*3/uL (0.00-0.01); Neutrophils # (A) 5.54 X 10*3/uL (1.80-7.70); Neutrophils % (A) 59.8 %; Platelet Count 490 X 10*3/uL (140-440); RBC 4.47 X 10*6/uL (4.10-5.20); RDW 17.1 % (11.5-14.5); WBC 9.26 X 10*3/uL (4.50-10.00)
[2024-02-12 15:55] LABS: Chol/HDL Ratio 2.51 Ratio; Iron 24 UG/DL (50-170); LDL Cholesterol,Calculated 86.9 mg/dL (0.0-131.0); Rheumatoid Factor, Qnt <15 IU/mL (0-15); VLDL Calculation 13.46 mg/dL (5.00-40.00)
[2024-02-12 15:56] LABS: % Iron Saturation 5.05 (12.00-45.00); ALT 15 U/L (8-44); AST 20 U/L (13-35); Albumin 4.3 g/dL (3.8-4.9); Albumin/Globulin Ratio 1.59 Ratio (1.60-3.17); Alkaline Phosphatase 107 U/L (41-126); BUN/Creat Ratio 19.83 Ratio (12.00-20.00); Blood Urea Nitrogen 11.9 mg/dL (9.0-27.0); Carbon Dioxide 23.3 mmol/L (21.6-31.8); Chloride 106 mmol/L (96-109); Globulin 2.7 g/dL (1.6-3.3); Glucose 92 mg/dL (70-110); Potassium 4.5 mmol/L (3.5-5.5); Sodium 140 mmol/L (135-145); Total Bilirubin 0.9 mg/dL (0.3-1.2); Total Iron Binding Capacity 475 UG/DL (228-460)
[2024-02-12 16:22] LABS: Anti-DNA, DS unit <1.0 IU/mL; DNA Double-Stranded Negative (Negative)
[2024-02-12 16:41] LABS: Erythrocyte Sedimentation Rate 9 mm/Hr (0-20)
[2024-02-12 17:56] LABS: Cyclic Citrull Pep IgG Unit <1.5 U/mL (<=3.9); Cyclic Citrullinated Pep IgG Negative
== END | disposition home or self-care (01) ==
LOC: LABWHC1 08:54
PROVIDERS: ATTEND Internal Medicine
DX: Z13.29 Encounter for screening for other suspected endocrine disorder (principal); Z13.220 Encounter for screening for lipoid disorders; Z13.228 Encounter for screening for other metabolic disorders; D64.9 Anemia, unspecified; M25.50 Pain in unspecified joint
CPT/HCPCS: 36415; 80053; 80061; 83540; 83550; 84443; 85025; 85652; 86038; 86200; 86225; 86431; 86618

== ENCOUNTER 2024-06-28 15:41 | Emergency (ER) | payer OTHER ==
--- NOTE | 2024-06-28 16:10 | ED ---
Lower Extremity Injury HPI - General Chief Complaint: Extremity Injury, Lower Stated Complaint: R Lump on side of Leg Time Seen by Provider: 06/28/24 15:53 Source: patient Mode of arrival: ambulatory Limitations: no limitations - History of Present Illness Initial Comments: This is a 48-year-old female presenting with right calf bump x 7 days. Patient endorses sudden onset pain with localized bump on her right outer calf initially described as sharp. Patient states pain resolved after first day with ongoing tightness. Patient endorses history of PE and recently started smoking but denies recent trauma to the area. Patient endorses concerned for DVT. Patient denies fever, chills, chest pain, dyspnea, hemoptysis, LE swelling. MD Complaint: leg injury Onset/Timin -: days(s) Injury: Leg: Right Worsens With: weight bearing, palpation - Related Data Home Medications Medication Instructions Recorded Confirmed Albuterol Inhaler [Ventolin Hfa 1 - 2 puff INHALATION RT-Q6H PRN 02/24/19 02/25/19 Inhaler] Cholecalciferol [Vitamin D3 (25 1,000 unit PO DAILY 02/24/19 02/25/19 Mcg = 1000 Iu)] Thiamine [Vitamin B-1] 100 mg PO DAILY 02/24/19 02/25/19 Turmeric Root Extract [Turmeric] 500 mg PO DAILY 02/24/19 02/25/19 Cannabidiol (Cbd) [Epidiolex] 1 drop PO DAILY PRN 02/25/19 02/25/19 Previous Rx's Medication Instructions Recorded Hydrocodone/Acetaminophen [[place] 1 each PO Q6HR PRN #15 tab 02/25/19 5-325] Cephalexin [Keflex] 500 mg PO Q12HR 7 Days #14 cap 09/16/19 Allergies Allergy/AdvReac Type Severity Reaction Status Date / Time DERMABOND Allergy Rash/Hives Uncoded 06/28/24 15:46 Review of Systems ROS Statement: Those systems with pertinent positive or pertinent negative responses have been documented in the HPI. ROS Other: All systems not noted in ROS Statement are negative. 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, allergy induced asthma History of Any Multi-Drug Resistant Organisms: None Reported Past Surgical History: Adenoidectomy, Appendectomy, Bariatric Surgery, Cholecystectomy, Orthopedic Surgery, Tonsillectomy Additional Past Surgical History / Comment(s): Ford en Y Gastric Bypass, laparoscopy-exploratory, Left Knee arthroscopy Past Anesthesia/Blood Transfusion Reactions: No Reported Reaction Past Psychological History: Depression Smoking Status: Never smoker Past Alcohol Use History: Daily, Occasional Past Drug Use History: Marijuana - Past Family History Mother Family Medical History: No Reported History Father Family Medical History: No Reported History General Exam Limitations: no limitations General appearance: alert, in no apparent distress Head exam: Present: atraumatic, normocephalic, normal inspection Eye exam: Present: normal appearance, PERRL, EOMI. Absent: scleral icterus, conjunctival injection, periorbital swelling ENT exam: Present: normal exam, mucous membranes moist Neck exam: Present: normal inspection. Absent: tenderness, meningismus, l ymphadenopathy Respiratory exam: Present: normal lung sounds bilaterally. Absent: respiratory distress, wheezes, rales, rhonchi, stridor Cardiovascular Exam: Present: regular rate, normal rhythm, normal heart sounds. Absent: systolic murmur, diastolic murmur, rubs, gallop, clicks GI/Abdominal exam: Present: soft, normal bowel sounds. Absent: distended, tenderness, guarding, rebound, rigid Extremities exam: Present: normal inspection, full ROM, tenderness (Positive right lateral mid calf point tenderness with palpable 1 cm induration and area tenderness. Negative overlying erythema, ecchymosis, edema, obvious foreign body, discharge. Negative Homans' sign), normal capillary refill, calf tenderness. Absent: pedal edema, joint swelling Back exam: Present: normal inspection Neurological exam: Present: alert, oriented X3, CN II-XII intact Psychiatric exam: Present: normal affect, normal mood Skin exam: Present: warm, dry, intact, normal color. Absent: rash Course Vital Signs 06/28/24 15:43 Pulse Rate 77 Respiratory 18 Rate Blood Pressure 140/79 O2 Sat by Pulse 98 Oximetry Medical Decision Making - Medical Decision Making Was pt. sent in by a medical professional or institution (, PA, PURCHASING CONTRACTING CLERK, urgent care, hospital, or snf...) When possible be specific @ -No Did you speak to anyone other than the patient for history (EMS, parent, family, police, friend...)? What history was obtained from this source @ -No Did you review nursing and triage notes (agree or disagree)? Why? @ -I reviewed and agree with nursing and triage notes Were old charts reviewed (outside hosp., previous admission, EMS record, old EKG, old radiological studies, urgent care reports/EKG's, snf records)? Report findings @ -No old charts were reviewed Differential Diagnosis (chest pain, altered mental status, abdominal pain women, abdominal pain men, vaginal bleeding, weakness, fever, dyspnea, syncope, headache, dizziness, GI bleed, back pain, seizure, CVA, palpatations, mental health, musculoskeletal)? @ -DVT, muscle spasm, varicosity, thrombophlebitis, this is not an exhaustive list EKG interpreted by me (3pts min.). @ -Not done X-rays interpreted by me (1pt min.). @ -None done CT interpreted by me (1pt min.). @ -None done U/S interpreted by me (1pt. min.). @ -RLE ultrasound shows no indication of DVT What testing was considered but not performed or refused? (CT, X-rays, U/S, labs)? Why? @ -None What meds were considered but not given or refused? Why? @ -None Did you discuss the management of the patient with other professionals (professionals i.e. , PA, PURCHASING CONTRACTING CLERK, lab, RT, psych nurse, oncology social worker, purchasing contracting clerk, teacher, air intelligence officer, rehabilitation caseworker)? Give summary @ -No Was smoking cessation discussed for >3mins.? @ -No Was critical care preformed (if so, how long)? @ -No Were there social determinants of health that impacted care today? How? (Homeles sness, low income, unemployed, alcoholism, drug addiction, transportation, low edu. Level, literacy, decrease access to med. care, [facility], rehab)? @ -No Was there de-escalation of care discussed even if they declined (Discuss DNR or withdrawal of care, Hospice)? DNR status @ -No What co-morbidities impacted this encounter? (DM, HTN, Smoking, COPD, CAD, Cancer, CVA, ARF, Chemo, Hep., AIDS, mental health diagnosis, sleep apnea, morbid obesity)? @ -None Was patient admitted / discharged? Hospital course, mention meds given and route, prescriptions, significant lab abnormalities, going to OR and other pertinent info. @ -RLE Doppler ultrasound shows no indication of DVT. Patient advised follow-up with primary care for ongoing calf tightness. Undiagnosed new problem with uncertain prognosis? @ -No Drug Therapy requiring intensive monitoring for toxicity (Heparin, Nitro, Insulin, Cardizem)? @ -No Were any procedures done? @ -No Diagnosis/symptom? @ -Calf strain Acute, or Chronic, or Acute on Chronic? @ -Acute Uncomplicated (without systemic symptoms) or Complicated (systemic symptoms)? @ -Uncomplicated Side effects of treatment? @ -No Exacerbation, Progression, or Severe Exacerbation? @ -No Poses a threat to life or bodily function? How? (Chest pain, [place], [place], pneumonia, PE, COPD, DKA, ARF, appy, cholecystitis, CVA, Diverticulitis, Homicidal, Suicidal, threat to staff... and all critical care pts) @ -No Disposition Clinical Impression: Strain of right calf muscle Disposition: HOME SELF-CARE Condition: Good Instructions (If sedation given, give patient instructions): Muscle Spasm (ED) Is patient prescribed a controlled substance at d/c from ED?: No Referrals: Brenna Earl MD [Primary Care Provider] - 1-2 days Time of Disposition: 17:02
--- NOTE | 2024-06-28 16:57 | US ---
EXAMINATION TYPE: US venous doppler duplex LE RT DATE OF EXAM: 06/28/2024 4:38 PM COMPARISON: NONE CLINICAL INDICATION: Female, 48 years old with history of pain; Pain Lump calf right leg. , Pain TECHNIQUE: The lower extremity deep venous system is examined utilizing real time linear array sonog sherry with graded compression, color doppler sonography, and spectral doppler. SIDE PERFORMED: Right FINDINGS: VESSELS IMAGED: Common Femoral Vein Deep Femoral Vein Greater Saphenous Vein * Femoral Vein Popliteal Vein Small Saphenous Vein * Proximal Calf Veins (* superficial vessels) Right Leg: Negative for DVT, Color Doppler imaging shows patency of the vessels. Spectral waveforms are within normal limits. IMPRESSION: No ultrasound evidence for deep venous thrombosis. [facility], , 06/28/2024 4:55 PM
[2024-06-28 17:34] VITALS: BP 138/83; PULSE 64; RESP 16
== END 2024-06-28 17:34 | disposition home or self-care (01) ==
LOC: EC 15:41
DX: S86.912A Strain of unspecified muscle(s) and tendon(s) at lower leg level, left leg, initial encounter (principal); Z91.09 Other allergy status, other than to drugs and biological substances; X58.XXXA Exposure to other specified factors, initial encounter
CPT/HCPCS: 99283